=== PATIENT | male | born 1985 | race Caucasian/White ===

== ENCOUNTER 2018-12-02 10:55 | Emergency (ER) | payer SELFPAY ==
[2018-12-02 11:05] VITALS: BP 108/71
[2018-12-02] MEDS ORDERED: ONDANSETRON 4 MG TAB.RAPDIS PO ONE (11:23)
--- NOTE | 2018-12-02 11:27 | ER Document Report ---
ED General - General Chief Complaint: Abdominal Pain Stated Complaint: CHILLS, DIARRHEA Time Seen by Provider: 12/02/18 11:17 TRAVEL OUTSIDE OF THE [place] IN LAST 30 DAYS: No - HPI Notes: Patient is a 33-year-old male that presents to the emergency department for chief complaint of nausea vomiting and diarrhea. Patient reports 5-10 episodes of diarrhea yesterday and today. He has had 2 episodes of vomiting yesterday and today. He denies any blood in his emesis or stool. He denies any near-syncope palpitations or lightheadedness. He states that he has 2 children in the home that have the same symptoms. He reports feeling mildly feverish this morning but not currently. He does endorse crampy abdominal pain that is intermittent and diffuse. The pain is relieved after having a bowel movement. Currently he denies having the pain. He has not taken any medicine at home for his symptoms. Past Medical History: Asthma Past Surgical History: Negative Social History: Daily tobacco. Occasional alcohol, occasional marijuana Family History: Reviewed and noncontributory for presenting illness Allergies: Reviewed, see documented allergy list. REVIEW OF SYSTEMS: CONSTITUTIONAL : No fever No chills No diaphoresis No recent illness EENT: No vision changes No congestion No sore throat CARDIOVASCULAR: No chest pain No palpitations RESPIRATORY: No shortness of breath No cough No difficulty breathing GASTROINTESTINAL: abdominal pain nausea vomiting diarrhea GENITOURINARY: No dysuria No hematuria No difficulty urinating MUSCULOSKELETAL: No back pain No leg pain No arm pain SKIN: No rashes No lesions LYMPHATIC: No swollen, enlarged glands. NEUROLOGICAL: No lightheadedness No headache No weakness No paresthesias PSYCHIATRIC: No anxiety No depression PHYSICAL EXAMINATION: Vital signs reviewed, nursing noted reviewed. GENERAL: Well-appearing, well-nourished and in no acute distress. HEAD: Atraumatic, normocephalic. EYES: Eyes appear normal, extraocular movements intact, sclera anicteric, conjunctiva are normal. ENT: nares patent, oropharynx clear without exudates. Moist mucous membranes. NECK: Normal range of motion, supple without lymphadenopathy LUNGS: Breath sounds wheezing to auscultation bilaterally, no accessory muscle use tachypnea or respiratory distress. HEART: Regular rate and rhythm without murmurs ABDOMEN: Soft, nontender, normoactive bowel sounds. No rebound, guarding, or rigidity. No masses appreciated. EXTREMITIES: Nontender, good range of motion, no pitting or edema. NEUROLOGICAL: No focal neurological deficits. Moves all extremities spontaneously Motor and sensory grossly intact on exam. PSYCH: Normal mood, normal affect. SKIN: Warm, Dry, normal turgor, no rashes or lesions noted on exposed skin - Related Data Allergies/Adverse Reactions: No Known Allergies Allergy (Verified 12/02/18 11:20) Past Medical History - Social History Smoking Status: Current Every Day Smoker Chew tobacco use (# tins/day): No Frequency of alcohol use: Occasional Drug Abuse: Marijuana Family History: None Patient has suicidal ideation: No Patient has homicidal ideation: No Pulmonary Medical History: Reports: Hx Asthma Renal/ Medical History: Denies: Hx Peritoneal Dialysis Skin Medical History: Denies Hx MRSA - Immunizations Hx Diphtheria, Pertussis, Tetanus Vaccination: No Physical Exam - Vital signs Vitals: Temp Pulse Resp BP Pulse Ox 98.2 F 88 18 108/71 95 12/02/18 11:04 12/02/18 11:04 12/02/18 11:04 12/02/18 11:04 12/02/18 11:04 Course - Re-evaluation Re-evalutation: 12/02/18 11:26 Vitals reviewed. Nursing notes reviewed. Patient is afebrile and nontoxic in appearance. Abdominal exam is benign with no focal tenderness. His symptoms are consistent with viral gastroenteritis. He appears well-hydrated and is able to tolerate oral intake. He will be given Zofran for symptomatic management. He was counseled on hydration. Patient also a daily tobacco user with wheezing and was counseled on tobacco cessation. Patient in agreement with plan of care and stable at discharge. - Vital Signs Vital signs: Temp Pulse Resp BP Pulse Ox 98.2 F 88 18 108/71 95 12/02/18 11:04 12/02/18 11:04 12/02/18 11:04 12/02/18 11:04 12/02/18 11:04 Discharge - Discharge Clinical Impression: Gastroenteritis, Wheezing Condition: Stable Disposition: HOME, SELF-CARE Instructions: Gastroenteritis (adult) ([facility]) Additional Instructions: Please return to the emergency department if you have any worsening, or concern of your symptoms. Please return to the emergency department if you develop chest pain, difficulty breathing, severe abdominal pain, or ongoing vomiting. Please follow-up with your primary care physician in 2-3 days and any other recommended physicians. If prescribed, take all medications as directed. If you have any questions or concerns do not hesitate to return the emergency department for evaluation. Prescriptions: Ondansetron [Zofran Odt 4 mg Tablet] 1 tab PO Q4H PRN #15 tab.rapdis PRN Reason: For Nausea/Vomiting Forms: Smoking Cessation Education, Return to Work Referrals: [facility] [Provider Group] - Follow up as needed
== END 2018-12-02 11:32 | disposition home or self-care (01) ==
LOC: ER 10:55
DX: K52.9 Noninfective gastroenteritis and colitis, unspecified (principal); J45.909 Unspecified asthma, uncomplicated; R11.2 Nausea with vomiting, unspecified; R10.84 Generalized abdominal pain; F17.200 Nicotine dependence, unspecified, uncomplicated; F12.10 Cannabis abuse, uncomplicated
CPT/HCPCS: 99283; S0119

== ENCOUNTER 2019-02-26 08:26 | Emergency (ER) | payer SELFPAY ==
[2019-02-26] MEDS ORDERED: ONDANSETRON HCL INJ/PF 4 MG/2 ML SDV IV ONE (09:06)
[2019-02-26] MEDS ORDERED: IPRATROPIUM/ALBUTEROL 0.5-2.5 MG/3 ML AMPUL NEB ONE (09:06)
[2019-02-26] MEDS ORDERED: NORMAL SALINE 1000 ML 1,000 ML IV ONE ×2 (09:06→10:34)
--- NOTE | 2019-02-26 09:25 | ER Document Report ---
Entered by SWATHI LOPEZ SCRIBE 02/26/19 0912 Acting as scribe for:JAZIEL HYLTON MD ED General - General Chief Complaint: Vomiting/Diarrhea Stated Complaint: GENERALIZED WEAKNESS Time Seen by Provider: 02/26/19 08:59 Mode of Arrival: Ambulatory Information source: Patient Notes: Patient is a 33 year old male with no reported significant medical history presents to the emergency department complaining of nausea, vomiting, diarrhea and subjective fevers onset 2 days ago. Patient states he has vomited "quite a bit" and has had a small amount of diarrhea. He describes his subjective fevers as having hot and cold flashes and being diaphoretic. He also reports having recently an elevated blood pressure however, he denies having HTN. He states he had similar symptoms in November of 2018 which was diagnosed with viral gastroenteritis. TRAVEL OUTSIDE OF THE [place] IN LAST 30 DAYS: No - Related Data Allergies/Adverse Reactions: No Known Allergies Allergy (Verified 02/26/19 08:26) Past Medical History - General Information source: Patient - Social History Smoking Status: Current Every Day Smoker Cigarette use (# per day): Yes - 1/2 PPD Chew tobacco use (# tins/day): No Smoking Education Provided: No Frequency of alcohol use: Occasional Drug Abuse: Marijuana - occasional Occupation: [employer] Lives with: Family Family History: None Pulmonary Medical History: Reports: Hx Asthma - Immunizations Hx Diphtheria, Pertussis, Tetanus Vaccination: No Review of Systems - Review of Systems Constitutional: See HPI, Chills, Diaphoresis, Fever - subjective EENT: No symptoms reported Cardiovascular: No symptoms reported Respiratory: No symptoms reported Gastrointestinal: See HPI, Diarrhea, Nausea, Vomiting Genitourinary: No symptoms reported Male Genitourinary: No symptoms reported Musculoskeletal: No symptoms reported Skin: No symptoms reported Hematologic/Lymphatic: No symptoms reported Neurological/Psychological: No symptoms reported -: Yes All other systems reviewed and negative Physical Exam - Vital signs Vitals: Temp Pulse Resp BP Pulse Ox 98.9 F 105 H 16 127/89 H 93 02/26/19 08:30 02/26/19 08:30 02/26/19 08:30 02/26/19 08:30 02/26/19 08:30 - Notes Notes: GENERAL: Alert, interacts well. No acute distress. HEAD: Normocephalic, atraumatic. EYES: Pupils equal, round, and reactive to light. Extraocular movements intact. ENT: Oral mucosa dry, tongue midline, no erythema to the posterior oropharynx. NECK: Full range of motion. Supple. Trachea midline. LUNGS: Inspiratory wheezes and rhonchi. Cough. No respiratory distress. HEART: Regular rate and rhythm. No murmurs, gallops, or rubs. ABDOMEN: Soft, non-tender. Non-distended. Bowel sounds present in all 4 quadrants. No guarding, rigidity, or rebound. EXTREMITIES: Moves all 4 extremities spontaneously. No edema. NEUROLOGICAL: Alert and oriented x3. Normal speech. PSYCH: Normal affect, normal mood. SKIN: Warm, dry, normal turgor. No rashes or lesions noted. Course - Re-evaluation Re-evalutation: 02/26/19 13:13 I went back to check on the patient. He did have some wheezes and rhonchi but was much improved. I asked him about diarrhea, and he stated he had not had any since arriving here, and then said he has not had any at all today. I told him I had ordered another liter of fluid to be sure he was well hydrated, as that does help with the wheezing and congestion. I also stated that he should probably be on steroids and possibly antibiotics. I emphasized that he should consider stopping smoking as that is contributing to his respiratory issues. He suddenly set up stated he wanted his IV out and was leaving. When I asked if he wanted the prescriptions I was planning on writing, he stated no he just wanted to leave right away. - Vital Signs Vital signs: Temp Pulse Resp BP Pulse Ox 98.9 F 105 H 16 127/89 H 93 02/26/19 08:30 02/26/19 08:30 02/26/19 08:30 02/26/19 08:30 02/26/19 08:30 - Laboratory Result Diagrams: 02/26/19 09:36 02/26/19 09:36 Laboratory results interpreted by me: 02/26/19 02/26/19 02/26/19 09:36 09:36 11:35 WBC 12.8 H Hgb 17.4 H Lymphocytes % 11.8 L Absolute Neutrophils 9.9 H Chloride 97 L Urine Protein 30 H Urine Ketones TRACE H - Diagnostic Test Radiology reviewed: Image reviewed, Reports reviewed - Chronic asymmetric l ucency in the left upper lobe unchanged from previous chest x-ray. Discharge - Discharge Clinical Impression: Nausea, vomiting and diarrhea, Bronchitis with bronchospasm, Dehydration Condition: Stable Disposition: AGAINST MEDICAL ADVICE Additional Instructions: Bronchitis with Bronchospasm (Wheezing) You have bronchitis with bronchospasm (wheezing). Sometimes people develop wheezing with a chest cold. This occurs either because of an underlying tendency toward asthma or because the virus itself irritates the bronchial tubes. This irritation causes cough, shortness of breath, and wheezing. Emergency treatment of bronchospasm may include adrenaline shots or bronchodilator aerosol. You may feel lightheaded and have a rapid pulse for an hour or two. Rest and get plenty of fluids. At home, we'll treat you with a bronchodilator inhaler. Corticosteroids may be required for some patients. Until you recover, avoid chemical fumes, dusts, pollens, and exercising in very cold or dry air. If you smoke, stop now! Most cases of bronchitis get better without antibiotics. We prescribe antibiotics when we believe bacteria are damaging your airways, or if there's high risk the bronchitis will worsen into pneumonia. Increase your fluid intake. A cool mist humidifier may make your lungs more comfortable. An expectorant (cough medicine that loosens phlegm) can help. Repeated episodes of bronchitis and bronchospasm may result in lung damage -- for example, chronic bronchitis, recurrent pneumonias, or emphysema. If you develop a fever, increased wheezing, chest pain, or severe shortness of breath, you should contact the doctor immediately. Gastroenteritis You most likely had gastroenteritis. This is an irritation of the stomach and intestinal tract. It's usually caused by a virus, but can also be caused by bacteria, toxins that cause food poisoning, or excessive alcohol intake. Symptoms may include fever, painful abdominal cramps, nausea, vomiting, and diarrhea. Start with small amounts (two to six ounces) of clear liquids (soft drinks, herb teas, broth, etc). Try to take fluids frequently even if you are vomiting, to prevent dehydration. When liquids are being consumed successfully, advance to small amounts of bland food (mashed potato, toast) for 6 - 12 hours. Gastroenteritis rarely requires medication. It goes away by itself. Use good handwashing so you don't spread germs. Wash underwear in very hot water. If symptoms are severe, talk to the doctor. Call your physician if blood appears in your vomitus or stool, if vomiting lasts longer than 24 hours, if the abdominal pain worsens or becomes localized to one area, or if you develop high fever. You have elected to leave without any further treatment, including any prescriptions for your current illness. This decision is commonly called leaving AGAINST MEDICAL ADVICE. Follow-up with a local medical doctor if not improving. RETURN TO THE EMERGENCY ROOM IF ANY NEW OR WORSENING SYMPTOMS. Scribe Attestation: 02/26/19 09:41 I personally performed the services described in the documentation, reviewed and edited the documentation which was dictated to the scribe in my presence, and it accurately records my words and actions. I personally performed the services described in the documentation, reviewed and edited the documentation which was dictated to the scribe in my presence, and it accurately records my words and actions.
[2019-02-26] MEDS: MAGNESIUM SULFATE/D5W 1 GM/100 ML RTUPB IV SCH ×2 (09:50→11:27)
[2019-02-26 10:02] LABS: ABSOLUTE BASOPHILS # (AUTO) 0.1 10^3/uL (0.0-0.2); ABSOLUTE LYMPHOCYTES (AUTO) 1.5 10^3/uL (0.5-4.7); ABSOLUTE MONOCYTES (AUTO) 1.3 10^3/uL (0.1-1.4); ABSOLUTE NEUT (AUTO) 9.9 10^3/uL (1.7-8.2); BASOPHILS % (AUTO) 0.4 % (0-2); EOSINOPHILS % (AUTO) 0.1 % (0-6); HEMATOCRIT 50.4 % (37.9-51.0); HEMOGLOBIN 17.4 g/dL (13.5-17.0); LYMPHOCYTES % (AUTO) 11.8 % (13-45); MEAN CORPUSCULAR HEMOGLOBIN 31.8 pg (27.0-33.4); MEAN CORPUSCULAR HGB CONC 34.5 g/dL (32.0-36.0); MEAN CORPUSCULAR VOLUME 92 fl (80-97); MONOCYTES % (AUTO) 10.3 % (3-13); PLATELET COUNT 209 10^3/uL (150-450); RED BLOOD COUNT 5.48 10^6/uL (4.35-5.55); RED CELL DISTRIBUTION WIDTH 13.4 % (11.5-14.0); SEGMENTED NEUTROPHILS % (AUTO) 77.4 % (42-78); TOTAL CELLS COUNTED % (AUTO) 100 %; WHITE BLOOD COUNT 12.8 10^3/uL (4.0-10.5)
[2019-02-26 10:17] LABS: ALANINE AMINOTRANSFERASE 29 U/L (21-72); ALBUMIN 4.6 g/dL (3.5-5.0); ALKALINE PHOSPHATASE 85 U/L (38-126); ANION GAP 10 (5-19); ASPARTATE AMINO TRANSFERASE 18 U/L (17-59); BILIRUBIN,DIRECT 0.3 mg/dL (0.0-0.4); BILIRUBIN,TOTAL 0.8 mg/dL (0.2-1.3); BLOOD UREA NITROGEN 12 mg/dL (7-20); CALCIUM 9.6 mg/dL (8.4-10.2); CARBON DIOXIDE 30 mmol/L (22-30); CHLORIDE 97 mmol/L (98-107); GLUCOSE 103 mg/dL (75-110); POTASSIUM 4.4 mmol/L (3.6-5.0); SODIUM 137.4 mmol/L (137-145); TOTAL PROTEIN 7.7 g/dL (6.3-8.2)
[2019-02-26] MEDS ORDERED: ALBUTEROL SULFATE 0.083% NEB 2.5 MG/3 ML AMPUL NEB ONE (10:34)
--- NOTE | 2019-02-26 10:43 | RADIOLOGY REPORT (SQ) ---
EXAM DESCRIPTION: CHEST SINGLE VIEW COMPLETED DATE/TIME: 02/26/2019 10:20 am REASON FOR STUDY: Wheezing, cough congestion, short of breath COMPARISON: 09/30/2011 EXAM PARAMETERS: NUMBER OF VIEWS: One view. TECHNIQUE: Single frontal radiographic view of the chest acquired. RADIATION DOSE: NA LIMITATIONS: None. FINDINGS: LUNGS AND PLEURA: There is markedly asymmetric lucency of the left upper lobe, similar to appearance on prior examination. MEDIASTINUM AND HILAR STRUCTURES: No masses. Contour normal. HEART AND VASCULAR STRUCTURES: Heart normal in size. Normal vasculature. BONES: No acute findings. HARDWARE: None in the chest. OTHER: No other significant finding. IMPRESSION: Markedly asymmetric lucency of the left upper lobe, possibly related to prior infectious insult or congenital lobar emphysema. Consider CT to further evaluate. There is no acute airspace opacity. TECHNICAL DOCUMENTATION: JOB ID: [id number] [email or web address]-[employer]- All Rights Reserved Reading location - IP/workstation name: [email or web address]
[2019-02-26 12:00] LABS: APPEARANCE,URINE SLIGHTLY-CLOUDY; BILIRUBIN,URINE NEGATIVE (NEGATIVE); COLOR,URINE YELLOW; GLUCOSE, URINE NEGATIVE (NEGATIVE); KETONES,URINE TRACE mg/dL (NEGATIVE); LEUKOCYTE ESTERASE,URINE NEGATIVE (NEGATIVE); NITRITE,URINE NEGATIVE (NEGATIVE); PROTEIN,URINE 30 mg/dL (NEGATIVE); URINE SPECIFIC GRAVITY 1.023; UROBILINOGEN,URINE NEGATIVE mg/dL (<2.0)
[2019-02-26] MEDS ORDERED: DEXTROSE 5%-LACTATED RINGERS 1,000 ML IV ONE (12:47)
[2019-02-26 13:21] VITALS: BP 132/69
== END 2019-02-26 13:21 | disposition left against medical advice (07) ==
LOC: ER 08:26
DX: J45.909 Unspecified asthma, uncomplicated (principal); J20.9 Acute bronchitis, unspecified; E86.0 Dehydration; R11.2 Nausea with vomiting, unspecified; R19.7 Diarrhea, unspecified; R50.9 Fever, unspecified; R61 Generalized hyperhidrosis; R03.0 Elevated blood-pressure reading, without diagnosis of hypertension; F17.210 Nicotine dependence, cigarettes, uncomplicated
CPT/HCPCS: 94640 ×2; 99284; 96375; 96365; 96366; 36415; 85025; 80053; 81001; 71045; J3475; J2405; J7030; J7620